=== PATIENT | female | born 1940 | race Caucasian/White ===

== ENCOUNTER 2017-02-09 21:15 | Emergency (ER) | payer MEDICARE, SELFPAY ==
[~2017-02-09 21:15] MED LIST: ACTOS30 MG PO; ALLERGY MED; ALLERGY RELIEF10 M1 PO; AMOXICILLIN875 M1 PO; ANTACID650 MG PO; ASPIRIN EC81 MG PO; ASTEPRO30 M1 NS; AZELASTINE137 MCG/01; BABY ASPIRIN81 MG PO; CALCITRIOL0.5 MC1 PO; CALCIUM 600 +1 EAC2 PO; CITRUCEL500 MG PO; CLARITIN10 M2 PO; DOCUSATE SODIU100 M2 PO; DOCUSATE SODIU100 MG; FERROUS SULFATE1 TAB PO; FLONASE ALLERG9.9 ML; FLUTICASONE PRO16 GM NS; FOSAMAX70 MG PO; IRON SUPPLEMEN325 MG PO; IRON325 M3 PO; LEVAQUIN250 M1 PO; LEVOCETIRIZINE D5 MG PO; LISINOPRIL10 MG PO; LISINOPRIL20 MG PO; PLAVIX75 M1 PO; PREDNISONE20 MG PO; PROTONIX40 M1 PO; SIMVASTATIN20 MG PO; SIMVASTATIN40 MG PO; STOOL SOFTENER1 EAC1 PO; STOOL SOFTENER50 M1 PO; TYLENOL325 MG PO; ULORIC40 MG PO; VITAMIN D32000 UNI2 PO; ZESTRIL2.5 M3 PO; ZOCOR40 M1 PO
[2017-02-09] MEDS ORDERED: OXYBUTYNIN CHLOR5 M2 PO (21:50)
[2017-02-09] MEDS ORDERED: SODIUM BICARBO650 M1 PO (21:51)
[2017-02-09] MEDS ORDERED: ULORIC40 MG/TAB PO (21:51)
[2017-02-09] MEDS ORDERED: PROAIR HFA8.5 GM INH (21:53)
[2017-02-09 21:58] LABS: BASO % 0.4 % (0-2); EOS % 3.1 % (0-7); EOSINOPHIL ABSOLUTE COUNT 0.3 tho/cmm (0.0-0.7); HCT-HEMATOCRIT 45.3 % (34.0-49.0); HGB-HEMOGLOBIN 15.9 gm/dl (12.0-15.5); IMMATURE GRANULOCYTES ABSOLUTE 0.05 tho/cmm (0-0.03); IMMATURE GRANULOCYTES PERCENT 0.5 % (0-0.3); LYMPH % 20.5 % (20-45); LYMPH ABSOLUTE COUNT 2.2 tho/cmm (0.8-4.5); MCH (MEAN CORPUSCULAR HGB) 33.7 pg (28.0-32.0); MCHC MEAN CORPUSCULAR HGB CONC 35.1 % (32.0-36.0); MEAN PLATELET VOLUME 10.5 cmc (9.4-12.4); MONO % 11.7 % (0-12); MONOCYTE ABSOLUTE COUNT 1.3 tho/cmm (0.0-1.2); NEUTROPHIL ABSOLUTE COUNT 6.9 tho/cmm (1.6-8.0); NEUTROPHIL-AUTOMATED 6.9 tho/cmm (1.6-8.0); NEUTROPHILS % 63.8 % (40-80); PLATELET COUNT 267 tho/cmm (150-450); RED BLOOD COUNT 4.72 mil/cmm (4.00-5.20); WHITE BLOOD COUNT 10.8 tho/cmm (4.0-10.0)
[2017-02-09 22:27] LABS: ALB/GLOB RATIO 0.8 (0.8-2.0); ALBUMIN 3.2 g/dl (3.5-5.0); ALKALINE PHOSPHATASE 66 U/L (33-138); ALT/SGPT 15 U/L (12-78); BILIRUBIN,TOTAL 0.5 mg/dl (0-1.5); BLOOD UREA NITROGEN 25 mg/dl (6-24); CALCIUM 9.4 mg/dl (8.5-10.5); CARBON DIOXIDE-VENOUS 25 mmol/L (22-32); CHLORIDE 109 mmol/l (96-110); CREATININE 2.07 mg/dl (0.50-1.10); GLUCOSE 184 mg/dL (70-110); SODIUM 142 mmol/L (135-145); eGFR VALUE FOR BLACK 26 mL/Min
[2017-02-09 22:28] LABS: ANION GAP 12 mmol/L (0-20); AST/SGOT 18 U/L (10-40); POTASSIUM 4.1 mmol/L (3.7-5.1)
[2017-02-09] MEDS ORDERED: PREDNISONE10 M1 PO (23:08)
[2017-02-27] MEDS ORDERED: PREDNISONE10 M1 PO (11:00)
[2017-02-27] MEDS ORDERED: SENNA8.6 M2 PO (12:31)
[2017-02-27] MEDS ORDERED: MACROBID 100 M100 M1 PO ×2 (14:58→22:36)
== END 2017-02-09 23:20 ==
LOC: EDMED 21:15
PROVIDERS: Emergency Medicine
DX: J44.1 Chronic obstructive pulmonary disease with (acute) exacerbation (principal); I10 Essential (primary) hypertension; E78.5 Hyperlipidemia, unspecified; Z87.891 Personal history of nicotine dependence; K21.9 Gastro-esophageal reflux disease without esophagitis; M81.0 Age-related osteoporosis without current pathological fracture; Z79.51 Long term (current) use of inhaled steroids; Z79.899 Other long term (current) drug therapy
CPT/HCPCS: J2930

== ENCOUNTER 2017-02-27 21:35 | Inpatient (IN) | payer MEDICARE, SELFPAY ==
[~2017-02-27 21:35] MED LIST changes: +MACROBID 100 M100 M1 PO; +OXYBUTYNIN CHLOR5 M2 PO; +PREDNISONE10 M1 PO; +PROAIR HFA8.5 GM INH; +SENNA8.6 M2 PO; +SODIUM BICARBO650 M1 PO; +ULORIC40 MG/TAB PO
[2017-02-27 22:09] LABS: BASO % 0.1 % (0-2); EOS % 0.2 % (0-7); HCT-HEMATOCRIT 39.1 % (34.0-49.0); HGB-HEMOGLOBIN 13.6 gm/dl (12.0-15.5); IMMATURE GRANULOCYTES ABSOLUTE 0.09 tho/cmm (0-0.03); IMMATURE GRANULOCYTES PERCENT 0.6 % (0-0.3); LYMPH % 4.6 % (20-45); LYMPH ABSOLUTE COUNT 0.7 tho/cmm (0.8-4.5); MCH (MEAN CORPUSCULAR HGB) 33.1 pg (28.0-32.0); MCHC MEAN CORPUSCULAR HGB CONC 34.8 % (32.0-36.0); MCV (MEAN CELL VOLUME) 95.1 fl (82.0-96.0); MEAN PLATELET VOLUME 9.6 cmc (9.4-12.4); MONO % 9.3 % (0-12); MONOCYTE ABSOLUTE COUNT 1.5 tho/cmm (0.0-1.2); NEUTROPHIL ABSOLUTE COUNT 13.5 tho/cmm (1.6-8.0); NEUTROPHIL-AUTOMATED 13.5 tho/cmm (1.6-8.0); NEUTROPHILS % 85.2 % (40-80); PLATELET COUNT 332 tho/cmm (150-450); RED BLOOD COUNT 4.11 mil/cmm (4.00-5.20); RED CELL DISTRIBUTION WIDTH 12.7 % (12.4-16.4); WHITE BLOOD COUNT 15.9 tho/cmm (4.0-10.0)
[2017-02-27 22:27] LABS: ALB/GLOB RATIO 0.6 (0.8-2.0); ALBUMIN 2.6 g/dl (3.5-5.0); ALKALINE PHOSPHATASE 56 U/L (33-138); ALT/SGPT 16 U/L (12-78); ANION GAP 14 mmol/L (0-20); AST/SGOT 12 U/L (10-40); BILIRUBIN,TOTAL 0.7 mg/dl (0-1.5); BLOOD UREA NITROGEN 28 mg/dl (6-24); CALCIUM 8.6 mg/dl (8.5-10.5); CARBON DIOXIDE-VENOUS 19 mmol/L (22-32); CHLORIDE 108 mmol/l (96-110); CREATININE 2.27 mg/dl (0.50-1.10); GLUCOSE 149 mg/dL (70-110); POTASSIUM 4.2 mmol/L (3.7-5.1); SODIUM 137 mmol/L (135-145); eGFR VALUE FOR BLACK 24 mL/Min
[2017-02-27] MEDS ORDERED: MACROBID 100 M100 M1 PO (22:36)
[2017-02-28 00:33] LABS: URINE APPEARANCE HAZY; URINE BILIRUBIN NEGATIVE (NEG); URINE BLOOD MODERATE (NEG); URINE COLOR YELLOW; URINE GLUCOSE (UA) NEGATIVE (NEG); URINE KETONE NEGATIVE (NEG); URINE LEUKOCYTE ESTERASE POSITIVE (NEG); URINE NITRITE POSITIVE (NEG); URINE PH 6.5 (5.0-8.0); URINE PROTEIN SMALL (NEG); URINE SPECIFIC GRAVITY 1.005 (1.003-1.030)
[2017-02-28 00:41] LABS: URINE RBC 0 /[HPF] (0-5); URINE WBC 60-70 /[HPF] (0-5)
[2017-02-28 00:42] LABS: URINE BACTERIA 1+; URINE EPITHELIAL CELLS 0-1 /[HPF] (0-10)
[2017-02-28 00:49] LABS: INR 1.2 INR (0.9-1.1); PROTHROMBIN TIME 14.2 SECONDS (9.0-13.6)
[2017-02-28 00:55] LABS: PROCALCITONIN 0.44 ng/ml (0.05-0.09)
[2017-02-28 02:49] LABS: BASO % 0.1 % (0-2); EOS % 0.2 % (0-7); HCT-HEMATOCRIT 33.7 % (34.0-49.0); HGB-HEMOGLOBIN 11.5 gm/dl (12.0-15.5); IMMATURE GRANULOCYTES PERCENT 0.8 % (0-0.3); LYMPH % 11.2 % (20-45); LYMPH ABSOLUTE COUNT 1.4 tho/cmm (0.8-4.5); MCH (MEAN CORPUSCULAR HGB) 32.8 pg (28.0-32.0); MCHC MEAN CORPUSCULAR HGB CONC 34.1 % (32.0-36.0); MEAN PLATELET VOLUME 9.6 cmc (9.4-12.4); MONO % 8.7 % (0-12); MONOCYTE ABSOLUTE COUNT 1.1 tho/cmm (0.0-1.2); NEUTROPHIL ABSOLUTE COUNT 9.8 tho/cmm (1.6-8.0); NEUTROPHIL-AUTOMATED 9.8 tho/cmm (1.6-8.0); PLATELET COUNT 297 tho/cmm (150-450); RED BLOOD COUNT 3.51 mil/cmm (4.00-5.20); RED CELL DISTRIBUTION WIDTH 12.8 % (12.4-16.4); WHITE BLOOD COUNT 12.4 tho/cmm (4.0-10.0)
[2017-02-28 02:55] LABS: ANION GAP 14 mmol/L (0-20); BLOOD UREA NITROGEN 26 mg/dl (6-24); CALCIUM 7.4 mg/dl (8.5-10.5); CARBON DIOXIDE-VENOUS 20 mmol/L (22-32); CHLORIDE 112 mmol/l (96-110); CREATININE 2.08 mg/dl (0.50-1.10); GLUCOSE 132 mg/dL (70-110); POTASSIUM 4.2 mmol/L (3.7-5.1); SODIUM 142 mmol/L (135-145); eGFR VALUE FOR BLACK 26 mL/Min
[2017-03-01 04:59] LABS: BASO % 0.3 % (0-2); EOS % 1.4 % (0-7); EOSINOPHIL ABSOLUTE COUNT 0.1 tho/cmm (0.0-0.7); HCT-HEMATOCRIT 32.2 % (34.0-49.0); HGB-HEMOGLOBIN 10.8 gm/dl (12.0-15.5); IMMATURE GRANULOCYTES ABSOLUTE 0.07 tho/cmm (0-0.03); IMMATURE GRANULOCYTES PERCENT 0.8 % (0-0.3); LYMPH % 13.6 % (20-45); LYMPH ABSOLUTE COUNT 1.3 tho/cmm (0.8-4.5); MCHC MEAN CORPUSCULAR HGB CONC 33.5 % (32.0-36.0); MCV (MEAN CELL VOLUME) 95.5 fl (82.0-96.0); MEAN PLATELET VOLUME 9.8 cmc (9.4-12.4); MONO % 10.2 % (0-12); MONOCYTE ABSOLUTE COUNT 0.9 tho/cmm (0.0-1.2); NEUTROPHIL ABSOLUTE COUNT 6.8 tho/cmm (1.6-8.0); NEUTROPHIL-AUTOMATED 6.8 tho/cmm (1.6-8.0); NEUTROPHILS % 73.7 % (40-80); PLATELET COUNT 278 tho/cmm (150-450); RED BLOOD COUNT 3.37 mil/cmm (4.00-5.20); RED CELL DISTRIBUTION WIDTH 12.7 % (12.4-16.4); WHITE BLOOD COUNT 9.2 tho/cmm (4.0-10.0)
[2017-03-01 05:14] LABS: ALBUMIN 1.8 g/dl (3.5-5.0); ANION GAP 13 mmol/L (0-20); BLOOD UREA NITROGEN 19 mg/dl (6-24); CALCIUM 7.3 mg/dl (8.5-10.5); CARBON DIOXIDE-VENOUS 21 mmol/L (22-32); CHLORIDE 114 mmol/l (96-110); CREATININE 1.84 mg/dl (0.50-1.10); GLUCOSE 88 mg/dL (70-110); PHOSPHOROUS 2.6 mg/dl (2.5-4.9); POTASSIUM 3.9 mmol/L (3.7-5.1); SODIUM 144 mmol/L (135-145); eGFR VALUE FOR BLACK 31 mL/Min
[2017-03-02 04:57] LABS: HGB-HEMOGLOBIN 11.4 gm/dl (12.0-15.5); PLATELET COUNT 307 tho/cmm (150-450)
[2017-03-02 05:05] LABS: ANION GAP 15 mmol/L (0-20); BLOOD UREA NITROGEN 16 mg/dl (6-24); CALCIUM 7.5 mg/dl (8.5-10.5); CARBON DIOXIDE-VENOUS 20 mmol/L (22-32); CHLORIDE 115 mmol/l (96-110); CREATININE 1.64 mg/dl (0.50-1.10); GLUCOSE 115 mg/dL (70-110); PHOSPHOROUS 2.6 mg/dl (2.5-4.9); SODIUM 146 mmol/L (135-145); eGFR VALUE FOR BLACK 35 mL/Min
[2017-03-02] MEDS ORDERED: KEFLEX500 M4 PO (14:22)
== END 2017-03-02 14:54 | DRG 871 ==
LOC: EDMED 21:35 → EMR2 23:28 → PCUB 02-28 02:05
PROVIDERS: Emergency Medicine; Family Medicine; ADMIT Internal Medicine
DX: A41.9 Sepsis, unspecified organism (principal); J96.01 Acute respiratory failure with hypoxia; N17.9 Acute kidney failure, unspecified; N39.0 Urinary tract infection, site not specified; R65.20 Severe sepsis without septic shock; B96.20 Unspecified Escherichia coli [E. coli] as the cause of diseases classified elsewhere; I12.9 Hypertensive chronic kidney disease with stage 1 through stage 4 chronic kidney disease, or unspecified chronic kidney disease; N18.3 Chronic kidney disease, stage 3 (moderate); Z86.718 Personal history of other venous thrombosis and embolism; E11.22 Type 2 diabetes mellitus with diabetic chronic kidney disease; J44.9 Chronic obstructive pulmonary disease, unspecified; E78.5 Hyperlipidemia, unspecified; M81.0 Age-related osteoporosis without current pathological fracture; Z86.73 Personal history of transient ischemic attack (TIA), and cerebral infarction without residual deficits; Z79.82 Long term (current) use of aspirin; Z79.02 Long term (current) use of antithrombotics/antiplatelets; Z88.8 Allergy status to other drugs, medicaments and biological substances; Z88.7 Allergy status to serum and vaccine; Z91.040 Latex allergy status; Z87.891 Personal history of nicotine dependence; R19.7 Diarrhea, unspecified
CPT/HCPCS: A9540; A9558; G8978-GP-CJ; G8979-GP-CI; J1650; J2543; J7030